=== PATIENT | female | born 1955 | race Caucasian/White ===

== ENCOUNTER 2016-12-20 14:14 | Emergency (ER) | payer MEDICAID ==
[2016-12-20 14:30] VITALS: BP 184/119; PULSE 101; RESP 18; TEMP 97.7; O2SAT 95
[2016-12-20] MEDS ORDERED: ONDANSETRON DISINTEGRATING 4 MG TAB PO ONE (14:41)
--- NOTE | 2016-12-20 15:06 | EDPHY ---
H & P Stated Complaint: N/V/D, L leg pain/numbness. tripped on rock Time Seen by Provider: 12/20/16 14:57 - Personal History Tetanus Vaccine Date: 2015 - Medical/Surgical History Hx Asthma: No Hx Chronic Respiratory Disease: No Hx Diabetes: No Hx Cardiac Disease: No Hx Renal Disease: No Hx Cirrhosis: No Hx Alcoholism: No Hx HIV/AIDS: No Hx Splenectomy or Spleen Trauma: No Other PMH: PMH- HTN, ANXIETY. PSH- ABD (HAD TWISTED INTESTINE) - Social History Smoking Status: Former smoker Constitutional: Initial Vital Signs Temperature (C) 36.5 C 12/20/16 14:25 Heart Rate 101 H 12/20/16 14:25 Respiratory Rate 18 12/20/16 14:25 Blood Pressure 184/119 H 12/20/16 14:25 O2 Sat (%) 95 12/20/16 14:25 O2 Delivery Mode Room Air Allergies/Adverse Reactions: Penicillins Allergy (Verified 11/18/16 14:03) Home Medications: Medication Instructions Recorded Ativan (*) 11/18/16 BENAZEPRIL HCL 11/18/16 Zofran Odt 4 mg (*) 11/18/16 Benazepril HCl 40 mg PO DAILY #30 tablet 12/20/16 Ondansetron Odt [Zofran Odt 4 mg 4 mg PO Q4 PRN #10 tab 12/20/16 (RX)] Medical Decision Making ED Course/Re-evaluation: CHIEF COMPLAINT: nausea, multiple complaints HISTORY OF PRESENT ILLNESS: The patient is a 61 y/o female complaining of nausea for the last few days and stating that her left mariano is purple. She says she fell over a rock several weeks ago and now has some pain under her left knee cap when walking. She says she has been taking aspirin and Tylenol for her pain. She denies narcotic use since a tooth issue about one month ago. She also states her hand was bit by a dog a few months ago. It's not completely clear what she is requesting from the ED. She does not have a primary care provider. REVIEW OF SYSTEMS: A 10 point review of systems was performed and is negative with the exception of the elements mentioned in the history of present illness. PHYSICAL EXAM: HR, BP, O2 Sat, RR. Temp noted General Appearance: Alert, well hydrated, appropriate, and non-toxic appearing. Head: Atraumatic without scalp tenderness or obvious injury Eyes: Pupils equal, round, reactive to light and accommodation, EOMI, no trauma , no injection. Ears: Clear bilaterally, no perforation, normal landmarks Nose: Atraumatic, no rhinorrhea, clear. Throat: There is no erythema or exudates, no lesions, normal tonsils, mucus membranes moist. Neck: Supple, 2+ carotid upstroke, nontender, no lymphadenopathy. Respiratory: No retractions, no distress, no wheezes, and no accessory muscle use. Lungs are clear to auscultation bilaterally. Cardiovascular: Regular rate and rhythm, no murmurs, rubs, or gallops. Bilateral carotid, radial, dorsalis pedis, and posterior tibial pulses intact. Good capillary refill all extremities. Gastrointestinal: Abdomen is soft, nontender, non-distended, no masses, no rebound, no guarding, no peritoneal signs. Musculoskeletal: Normal active ROM of all extremities, atraumatic. Neurological: Alert, appropriate, and interactive. The patient has normal DTRs and non-focal cranial nerves, motor, sensory, and cerebellar exam. Skin: No rashes, good turgor, no nodules on palpation. Past medical history: Hypertension, disability from multiple orthopedic injuries Past surgical history: Bowel obstruction Family history: Noncontributory Social history: no PCP, no narcotic caution Prior medical records reviewed including previous ED visit 11/18/16 for multiple complaints; she eloped from that visit. DIFFERENTIAL DIAGNOSIS: The differential diagnosis for the patient's nausea included but was not limited to gastroenteritis, gastritis, appendicitis, and medication side effect. MEDICAL DECISION MAKING: This is a 61 y/o female who has a recent history of leaving AMA from this ED complaining today of nausea as well as several chronic orthopedic injuries. She is on a no-narcotic caution here and will not receive pain medication in the ED. She received 4mg PO Zofran for nausea with complete resolution of her symptoms. She is hypertensive here in the 180s systolic and says she does not have a local PCP who fills her medications. Case management will work with patient to establish local primary care. Will write her for a one-month supply of her hypertension medication, Benazepril. She will be referred to [facility] for follow up, which she agrees to. - Data Points Medications Given: Discontinued Medications Ondansetron HCl (Zofran Odt) 4 mg PO EDNOW ONE Stop: 12/20/16 14:42 Last Admin: 12/20/16 14:47 Dose: 4 mg Departure - Departure Disposition: Home, Routine, Self-Care Clinical Impression: Nausea, Hypertension Condition: Good Instructions: Acute Nausea and Vomiting (ED), Hypertension (ED) Additional Instructions: Take your Benazepril as prescribed for hypertension. Follow up with [facility] at [address] [place], [place] [address] ([phone]) on Friday12/23/16 at 11:25 a.m. Please make sure to have your ID, Medicaid card and any other medical history information with you. Referrals: [facility] [Outside] - As per Instructions Prescriptions: Benazepril HCl 40 mg PO DAILY #30 tablet Ondansetron Odt [Zofran Odt 4 mg (RX)] 4 mg PO Q4 PRN #10 tab PRN Reason: Nausea/Vomiting, Use 1st Report Scribed for: Adin Brown Report Scribed by: Sydni Haas Date of Report: 12/20/16 Time of Report: 15:07
== END 2016-12-20 16:08 | disposition home or self-care (01) ==
DX: R11.0 Nausea (principal); I10 Essential (primary) hypertension; Z87.891 Personal history of nicotine dependence

== ENCOUNTER 2017-02-07 14:33 | Emergency (ER) | payer MEDICAID ==
[2017-02-07 15:00] VITALS: O2SAT 98
--- NOTE | 2017-02-07 15:13 | EDPHY ---
H & P Time Seen by Provider: 02/07/17 14:50 HPI/ROS: Chief complaint. Medication refill HPI. Patient is a 61-year-old female requesting prescription for benazepril and Ativan. She has a no narcotics letter from the emergency department. She was seen in our emergency department about 1 month ago and was given prescription for benazepril but not Ativan. Apparently the patient feels that she needs Ativan and has been going to [facility] however they have not prescribed. She tells me that there is no help from [facility]. She has also had diarrhea and nausea for 10 months. No recent fever, chest discomfort, trouble breathing, abdominal pain. ROS Constitutional. no fever/chills, no weakness Eyes. no problems with vision ENT. no sore throat, no nasal drainage Cardiovascular. no chest pain Respiratory. no shortness of breath, no cough Abdominal. No abdominal pain but nausea and diarrhea . no problems urinating MS. no calf pain/swelling, no neck/back pain, no joint pain Skin. no rash Lymph. no swollen glands Neuro. no headache, no dizziness, no difficulty walking or with speech Past Medical/Surgical History: Past medical history is significant for hypertension, anxiety Social History: Single, nonsmoker, no alcohol Smoking Status: Former smoker Physical Exam: General Appearance: Alert well-developed female no distress vital signs are stable though initial blood pressure elevated 188/99 Eyes: Pupils equal and round no pallor or injection. ENT, Mouth: Mucous membranes are moist. Respiratory: There are no retractions, lungs are clear to auscultation. Cardiovascular: Regular rate and rhythm. Gastrointestinal: Abdomen is soft and nontender, no masses, bowel sounds normal. Neurological: Awake and alert, sensory and motor exams grossly normal. Skin: Warm and dry, no rashes. Musculoskeletal: Neck is supple nontender. Extremities symmetrical, full range of motion. Psychiatric: Patient is oriented X 3, there is no agitation. Constitutional: Initial Vital Signs Temperature (C) 36.5 C 02/07/17 14:37 Heart Rate 82 02/07/17 14:37 Respiratory Rate 22 H 02/07/17 14:37 Blood Pressure 188/99 H 02/07/17 14:37 O2 Sat (%) 98 02/07/17 14:37 O2 Delivery Mode Room Air Allergies/Adverse Reactions: Penicillins Allergy (Verified 02/07/17 14:35) Home Medications: Medication Instructions Recorded Ativan (*) 11/18/16 Benazepril HCl 40 mg PO DAILY #30 tablet 12/20/16 Benazepril HCl [Lotensin] 40 mg PO DAILY #14 tablet 02/07/17 Benazepril HCl [Lotensin] 40 mg PO DAILY #30 tablet 02/07/17 Ondansetron Odt [Zofran Odt] 4 mg PO Q4PRN PRN #10 tab 02/07/17 Medical Decision Making ED Course/Re-evaluation: 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 They are apparently okay with refilling the benazepril. Patient also asks for referral to a different physician. Patient is given Zofran in the emergency department for her nausea Patient and I discussed treatment plan including criteria for return importance of follow-up further evaluation. She expresses understanding and agreement Differential Diagnosis: Patient with history of hypertension out medication with elevated blood pressure but no symptoms. History of anxiety and it sounds like substance abuse has been a concern. We will have [facility] or new physician manage patient's prescription medication Departure - Departure Disposition: Home, Routine, Self-Care Clinical Impression: Hypertension Qualifiers: Hypertension type: essential hypertension Qualified Code(s): I10 - Essential ( primary) hypertension Condition: Good Instructions: Hypertension (ED) Additional Instructions: Your blood pressure is elevated today. Take benazepril as prescribed. Recheck your blood pressure at either [facility] or new physician next week. Return for worsening symptoms. Referrals: [facility] [Outside] - 2-3 days, call for appt. NONE *PRIMARY CARE P,. [Primary Care Provider] - 5-7 days, call for appt. Annette Mathews MD [Medical Doctor] - 5-7 days, call for appt. Prescriptions: Benazepril HCl [Lotensin] 40 mg PO DAILY #14 tablet Benazepril HCl [Lotensin] 40 mg PO DAILY #30 tablet Ondansetron Odt [Zofran Odt] 4 mg PO Q4PRN PRN #10 tab PRN Reason: Nausea/Vomiting, Use 1st
[2017-02-07] MEDS ORDERED: ONDANSETRON DISINTEGRATING 4 MG TAB PO ONE (15:21)
[2017-02-07 15:45] VITALS: BP 168/122; PULSE 78; RESP 16; TEMP 97.9
== END 2017-02-07 15:45 | disposition home or self-care (01) ==
DX: I10 Essential (primary) hypertension (principal); Z87.891 Personal history of nicotine dependence

== ENCOUNTER 2017-09-06 17:08 | Emergency (ER) | payer MEDICAID ==
[2017-09-06 17:31] VITALS: BP 134/93; PULSE 98; RESP 16; TEMP 97.5; O2SAT 97
--- NOTE | 2017-09-06 18:17 | EDPHY ---
H & P Stated Complaint: back pain HPI/ROS: HPI CHIEF COMPLAINT: Chronic pain, back pain HISTORY OF PRESENT ILLNESS: This patient very pleasant 61-year-old female she does have significant past medical history for hypertension, anxiety, chronic back pain chronic knee pain and chronic hip pain. She lives up in [place] in followed by Dr. Bnigham. She denies any new trauma or complaints. She is complaining of worsening back pain bilateral knee pain and hip pain. She states that she can no longer take any more [id number] medications and needs something stronger. Of note she is on a no narcotic care plan here in the emergency room. She denies any new trauma. Specifically she is complaining of bilateral knee pain, bilateral hip pain, midline lumbar back pain. There is no saddle anesthesia. No bowel bladder incontinence. No leg weakness. Past Medical History: Chronic pain, chronic back pain, hypertension, anxiety Past Surgical History: Right knee surgery, volvulus surgery Social History: Denies daily use of drugs alcohol tobacco products. Resides in [place]. Primary care doctors Dr. Salazar Family History: Noncontributory ROS REVIEW OF SYSTEMS: A comprehensive 10 point review of systems is otherwise negative aside from elements mentioned in the history of present illness. Exam Constitutional appears well nontoxic, no acute distress, triage nursing summary reviewed, vital signs reviewed, awake/alert. Eyes normal conjunctivae and sclera, EOMI, PERRLA. HENT normal inspection, atraumatic, moist mucus membranes, no epistaxis, neck supple/ no meningismus, no raccoon eyes. Respiratory clear to auscultation bilaterally, normal breath sounds, no respiratory distress, no wheezing. Cardiovascular rate normal, regular rhythm, no murmur, no edema, distal pulses normal. Gastrointestinal soft, non-tender, no rebound, no guarding, normal bowel sounds, no distension, no pulsatile mass. Genitourinary no CVA tenderness. Musculoskeletal no significant midline lumbar back pain, no step-offs, full range of motion, no calf swelling, no tenderness of extremities, no meningismus , good pulses, neurovascularly intact. Normal gait. Good leg strength bilaterally. No leg weakness on exam. Skin pink, warm, & dry, no rash, skin atraumatic. Neurologic awake, alert and oriented x 3, AAOx3, moves all 4 extremities equally, motor intact, sensory intact, CN II-XII intact, normal cerebellar, normal vision, normal speech. Psychiatric normal mood/affect. Heme/Lymph/Immune no lymphadenopathy. Differential Diagnosis: Includes but is not limited to in a particular order acute on chronic pain, nerve root compression, annular tear, disc herniation, compression fracture, chronic pain, narcotic seeking behavior Medical Decision Making: Plan for this patient lumbar spine x-ray to rule out significant compression fracture. She is on a no narcotic care plan here. I do recommend that she follows up with her primary care doctor. She understands this. Re-evaluation: Of note there are no red flags on exam. No leg weakness. No saddle anesthesia. No fever. 185: Patient's lumbar spine x-ray has been reviewed. Significant curvature and arthritis but no compression fracture. Image in triggered by myself. I do recommend she follows up with her primary care doctor. It lengthy discussion about pain options. I offered her tramadol or Ultram however she declined. She repeatedly over and over again asked for narcotic pain medicine. When I stated that I could not give her any pain medicine she states that she will come after me with a gun. Because of her threat threatening to shoot me with a gun I have asked security to escort her out property. Source: Patient - Personal History Current Tetanus/Diphtheria Vaccine: Yes Current Tetanus Diphtheria and Acellular Pertussis (TDAP): Yes Tetanus Vaccine Date: 2015 - Medical/Surgical History Hx Asthma: No Hx Chronic Respiratory Disease: No Hx Diabetes: No Hx Cardiac Disease: No Hx Renal Disease: No Hx Cirrhosis: No Hx Alcoholism: No Hx HIV/AIDS: No Hx Splenectomy or Spleen Trauma: No Other PMH: PMH- HTN, ANXIETY. PSH- ABD (HAD TWISTED INTESTINE) - Social History Smoking Status: Former smoker Constitutional: Initial Vital Signs Temperature (C) 36.4 C 09/06/17 17:29 Heart Rate 98 09/06/17 17:29 Respiratory Rate 16 09/06/17 17:29 Blood Pressure 134/93 H 09/06/17 17:29 O2 Sat (%) 97 09/06/17 17:29 O2 Delivery Mode Room Air Allergies/Adverse Reactions: cortisone Allergy (Verified 09/06/17 17:27) Penicillins Allergy (Verified 09/06/17 17:27) Home Medications: Medication Instructions Recorded Ativan (*) 11/18/16 Benazepril HCl 40 mg PO DAILY #30 tablet 12/20/16 Benazepril HCl [Lotensin] 40 mg PO DAILY #14 tablet 02/07/17 Benazepril HCl [Lotensin] 40 mg PO DAILY #30 tablet 02/07/17 Ondansetron Odt [Zofran Odt] 4 mg PO Q4PRN PRN #10 tab 02/07/17 Flexeril 09/06/17 Ibuprofen 09/06/17 Multivitamin 09/06/17 Naproxen 09/06/17 traZODone 09/06/17 Departure - Departure Disposition: Home, Routine, Self-Care Clinical Impression: Chronic pain Qualifiers: Chronic pain type: other chronic pain Qualified Code(s): G89.29 - Other chronic pain Back pain Qualifiers: Back pain location: low back pain Chronicity: acute Back pain laterality: unspecified Sciatica presence: without sciatica Qualified Code(s): M54.5 - Low back pain Condition: Good Instructions: Chronic Back Pain (ED) Additional Instructions: 1. Please follow up with her primary care doctor. 2. The return emergency room if you have worsening symptoms questions or concerns. Referrals: Jon Mooney MD [Primary Care Provider] - As per Instructions
== END 2017-09-06 19:12 | disposition home or self-care (01) ==
DX: M54.5 Low back pain (principal); G89.29 Other chronic pain; I10 Essential (primary) hypertension; Z87.891 Personal history of nicotine dependence